=== PATIENT | male | born 1980 | race Caucasian/White ===

== ENCOUNTER 2022-03-11 09:37 | Emergency (ER) | payer OTHER, SELFPAY ==
[~2022-03-11] VITALS: Ht 185.4 cm; Wt 100.0 kg
[2022-03-11 09:38] VITALS: BP 134/78
[2022-03-11] MEDS ORDERED: BACT800T5 PO (10:36)
[2022-03-11] MEDS ORDERED: BACTRIM 160MG/800MG DS TAB PO ONE (10:40)
== END 2022-03-11 11:07 | disposition home or self-care (01) ==
LOC: M ED 09:37
DX: L03.116 Cellulitis of left lower limb (principal)